=== PATIENT | female | born 1970 | race Two or more races ===

== ENCOUNTER → 2017-05-04 | Outpatient (CLI) | payer OTHER ==
[2017-05-04 09:26] LABS: Basophils # (auto) 0 uL; Eosinophils # (auto) 0.1 uL; Hematocrit 36.1 % (36.0-46.0); Hemoglobin 11.6 g/dL (12.2-16.2); Monocytes # (auto) 0.4 uL; Monocytes % (auto) 6.2 % (0.0-12.0); Neutrophils # (auto) 4.2 uL; White Blood Cell 6.4 10^3/uL (4.4-10.8)
[2017-05-04 09:28] LABS: Basophils % (auto) 0.4 % (0.0-2.0); Eosinophils % (auto) 1.5 % (0.0-7.0); Lymphocytes # (auto) 1.7 uL; Lymphocytes % (auto) 26.5 % (10.0-50.0); Mean Corpuscular Hemoglobin 23.9 pg (28.0-32.0); Mean Corpuscular Hgb Conc. 32.2 g/dL (32.0-36.0); Mean Corpuscular Volume 74.2 fL (80.0-100.0); Neutrophils % (auto) 65.4 % (37.0-80.0); Nucleated Red Blood Cells % 0.1 %; Platelet Count (auto) 361 10^3/uL (140-450); Red Blood Cells 4.86 10^6/uL (4.0-5.20); Red Cell Distribution Width 17.6 % (11.8-14.3)
[2017-05-04 09:56] LABS: Albumin 3.6 g/dL (3.4-5.0); BUN/Creatinine Ratio 18.5; Bilirubin, Total 0.7 mg/dL (0.2-1.0); Calcium 8.6 mg/dL (8.5-10.1); Potassium 3.9 mmol/L (3.5-5.1); Total Protein 7.6 g/dL (6.4-8.2)
== END | disposition home or self-care (01) ==
LOC: LAB 08:31
DX: R53.83 Other fatigue (principal); Z79.899 Other long term (current) drug therapy
CPT/HCPCS: 36415; 80053; 80061; 84443; 85025; 85652

== ENCOUNTER → 2018-02-25 | Outpatient (CLI) | payer OTHER ==
[2018-02-25 11:19] LABS: BUN/Creatinine Ratio 23.6; Bilirubin, Total 0.9 mg/dL (0.2-1.0); Calcium 8.5 mg/dL (8.5-10.1); Potassium 4.2 mmol/L (3.5-5.1)
[2018-02-25 11:35] LABS: Basophils # (auto) 0 uL; Hemoglobin 11.6 g/dL (12.2-16.2); Mean Corpuscular Volume 68.9 fL (80.0-100.0); Monocytes # (auto) 0.4 uL; Monocytes % (auto) 6.2 % (0.0-12.0); Neutrophils # (auto) 4.4 uL
[2018-02-25 11:37] LABS: Basophils % (auto) 0.5 % (0.0-2.0); Eosinophils # (auto) 0.3 uL; Eosinophils % (auto) 3.7 % (0.0-7.0); Hematocrit 36.7 % (36.0-46.0); Lymphocytes % (auto) 27.6 % (10.0-50.0); Mean Corpuscular Hemoglobin 21.8 pg (28.0-32.0); Mean Corpuscular Hgb Conc. 31.6 g/dL (32.0-36.0); Platelet Count (auto) 385 10^3/uL (140-450); Red Blood Cells 5.32 10^6/uL (4.0-5.20); Red Cell Distribution Width 20.3 % (11.8-14.3); White Blood Cell 7.1 10^3/uL (4.4-10.8)
== END | disposition home or self-care (01) ==
LOC: LAB 10:16
DX: Z00.01 Encounter for general adult medical examination with abnormal findings (principal); R53.83 Other fatigue; Z86.39 Personal history of other endocrine, nutritional and metabolic disease
CPT/HCPCS: 36415; 80053; 80061; 84436; 84443; 85025; 85652

== ENCOUNTER → 2018-05-28 | Outpatient (CLI) | payer OTHER ==
[2018-05-28 13:56] LABS: Basophils # (auto) 0 uL; Eosinophils # (auto) 0.2 uL; Hemoglobin 11.2 g/dL (12.2-16.2); Lymphocytes # (auto) 1.8 uL; White Blood Cell 9.1 10^3/uL (4.4-10.8)
[2018-05-28 13:58] LABS: Basophils % (auto) 0.5 % (0.0-2.0); Eosinophils % (auto) 1.8 % (0.0-7.0); Hematocrit 36.1 % (36.0-46.0); Lymphocytes % (auto) 19.6 % (10.0-50.0); Mean Corpuscular Volume 67.7 fL (80.0-100.0); Monocytes # (auto) 0.5 uL; Neutrophils # (auto) 6.6 uL; Neutrophils % (auto) 72.1 % (37.0-80.0); Platelet Count (auto) 411 10^3/uL (140-450); Red Blood Cells 5.33 10^6/uL (4.0-5.20); Red Cell Distribution Width 19.1 % (11.8-14.3)
[2018-05-28 14:41] LABS: % Iron Saturation 2.4 % (15-50)
== END | disposition home or self-care (01) ==
LOC: LAB 13:37
DX: D53.9 Nutritional anemia, unspecified (principal)
CPT/HCPCS: 36415; 82728; 83540; 83550; 85025

== ENCOUNTER → 2018-11-15 | Outpatient (CLI) | payer OTHER ==
[2018-11-15 08:09] LABS: Basophils # (auto) 0 uL; Eosinophils # (auto) 0.1 uL; Hemoglobin 12.6 g/dL (12.2-16.2); Lymphocytes # (auto) 1.5 uL; Mean Corpuscular Hgb Conc. 31.8 g/dL (32.0-36.0); Monocytes # (auto) 0.3 uL; Neutrophils # (auto) 5.2 uL; White Blood Cell 7.2 10^3/uL (4.4-10.8)
[2018-11-15 08:10] LABS: Basophils % (auto) 0.4 % (0.0-2.0); Eosinophils % (auto) 1.8 % (0.0-7.0); Hematocrit 39.7 % (36.0-46.0); Lymphocytes % (auto) 21.2 % (10.0-50.0); Mean Corpuscular Volume 72.3 fL (80.0-100.0); Neutrophils % (auto) 72.6 % (37.0-80.0); Platelet Count (auto) 402 10^3/uL (140-450); Red Cell Distribution Width 18.7 % (11.8-14.3)
[2018-11-15 09:13] LABS: Potassium 3.9 mmol/L (3.5-5.1)
[2018-11-15 09:21] LABS: BUN/Creatinine Ratio 24.1; Bilirubin, Total 0.5 mg/dL (0.2-1.0); Calcium 8.7 mg/dL (8.5-10.1); Total Protein 8.3 g/dL (6.4-8.2)
[2018-11-15 10:22] LABS: Free T4 (Free Thyroxine) 1.04 ng/dL (0.89-1.76)
[2018-11-15 10:23] LABS: Free T3 2.5 pg/mL (2.3-4.2)
[2018-11-15 10:24] LABS: Folate (Folic Acid) 14.21 ng/mL (5.38-24)
== END | disposition home or self-care (01) ==
LOC: LAB 07:51
DX: R53.83 Other fatigue (principal); Z86.39 Personal history of other endocrine, nutritional and metabolic disease
CPT/HCPCS: 36415; 80053; 80061; 82607; 82746; 83036; 84439; 84443; 84481; 85025

== ENCOUNTER → 2019-02-23 | Outpatient (CLI) | payer OTHER ==
[2019-02-23 07:56] LABS: Basophils # (auto) 0 uL; Eosinophils # (auto) 0.1 uL; Hemoglobin 12.3 g/dL (12.2-16.2); Mean Corpuscular Hemoglobin 23.1 pg (28.0-32.0); Neutrophils # (auto) 4.9 uL; Nucleated Red Blood Cells % 0.1 %; Red Blood Cells 5.34 10^6/uL (4.0-5.20)
[2019-02-23 07:59] LABS: Basophils % (auto) 0.3 % (0.0-2.0); Eosinophils % (auto) 1.5 % (0.0-7.0); Hematocrit 38.3 % (36.0-46.0); Lymphocytes # (auto) 1.4 uL; Lymphocytes % (auto) 20.6 % (10.0-50.0); Mean Corpuscular Hgb Conc. 32.2 g/dL (32.0-36.0); Mean Corpuscular Volume 71.6 fL (80.0-100.0); Monocytes # (auto) 0.4 uL; Monocytes % (auto) 5.5 % (0.0-12.0); Neutrophils % (auto) 72.1 % (37.0-80.0); Platelet Count (auto) 378 10^3/uL (140-450); Red Cell Distribution Width 18.3 % (11.8-14.3); White Blood Cell 6.7 10^3/uL (4.4-10.8)
[2019-02-23 08:58] LABS: Albumin 3.8 g/dL (3.4-5.0); Calcium 8.5 mg/dL (8.5-10.1)
[2019-02-23 09:03] LABS: BUN/Creatinine Ratio 25.9; Bilirubin, Total 0.4 mg/dL (0.2-1.0)
[2019-02-23 09:07] LABS: Micro Albumin 28.4 mg/L (0-30.0)
== END | disposition home or self-care (01) ==
LOC: LAB 07:32
DX: E11.9 Type 2 diabetes mellitus without complications (principal); Z86.39 Personal history of other endocrine, nutritional and metabolic disease
CPT/HCPCS: 36415; 80053; 80061; 82043; 82570; 83036; 84436; 84443; 85025

== ENCOUNTER → 2019-12-26 | Outpatient (CLI) | payer OTHER ==
[2019-12-26 11:20] LABS: Basophils # (auto) 0 10 ^3/uL (0-0.2); Eosinophils # (auto) 0.2 10 ^3/uL (0-0.8); Eosinophils % (auto) 2.6 % (0.0-7.0); Monocytes # (auto) 0.3 10 ^3/uL (0-1.3); White Blood Cell 6.3 10^3/uL (4.4-10.8)
[2019-12-26 11:22] LABS: Basophils % (auto) 0.5 % (0.0-2.0); Hematocrit 35.5 % (36.0-46.0); Lymphocytes # (auto) 1.6 10 ^3/uL (0.4-5.4); Lymphocytes % (auto) 26.1 % (10.0-50.0); Mean Corpuscular Hemoglobin 20.7 pg (28.0-32.0); Mean Corpuscular Volume 66.7 fL (80.0-100.0); Monocytes % (auto) 4.4 % (0.0-12.0); Neutrophils # (auto) 4.2 10 ^3/uL (1.6-8.6); Neutrophils % (auto) 66.4 % (37.0-80.0); Nucleated Red Blood Cells % 0.1 %; Platelet Count (auto) 423 10^3/uL (140-450); Red Blood Cells 5.33 10^6/uL (4.0-5.20); Red Cell Distribution Width 19.4 % (11.8-14.3)
[2019-12-26 12:00] LABS: Calcium 9.1 mg/dL (8.5-10.1); Potassium 3.9 mmol/L (3.5-5.1)
[2019-12-26 12:03] LABS: BUN/Creatinine Ratio 19.2; Bilirubin, Total 0.4 mg/dL (0.2-1.0); Total Protein 7.9 g/dL (6.4-8.2)
== END | disposition home or self-care (01) ==
LOC: LAB 10:47
DX: E11.9 Type 2 diabetes mellitus without complications (principal); R53.83 Other fatigue; D64.9 Anemia, unspecified
CPT/HCPCS: 36415; 80053; 84443; 85025

== ENCOUNTER → 2020-03-09 | Outpatient (CLI) | payer OTHER | END | disposition home or self-care (01) | LOC: LAB 09:43 | DX: E11.9 Type 2 diabetes mellitus without complications (principal); Z86.39 Personal history of other endocrine, nutritional and metabolic disease | CPT/HCPCS: 36415; 82306; 83036 ==

== ENCOUNTER → 2020-11-01 | Outpatient (CLI) | payer OTHER ==
[2020-11-01 08:49] LABS: Basophils # (auto) 0 10 ^3/uL (0-0.2); Eosinophils # (auto) 0.2 10 ^3/uL (0-0.8); Lymphocytes # (auto) 1.3 10 ^3/uL (0.4-5.4); Monocytes # (auto) 0.4 10 ^3/uL (0-1.3)
[2020-11-01 08:51] LABS: Basophils % (auto) 0.4 % (0.0-2.0); Eosinophils % (auto) 2.6 % (0.0-7.0); Hematocrit 37.3 % (36.0-46.0); Hemoglobin 11.7 g/dL (12.2-16.2); Mean Corpuscular Hemoglobin 21.7 pg (28.0-32.0); Mean Corpuscular Hgb Conc. 31.5 g/dL (32.0-36.0); Mean Corpuscular Volume 68.8 fL (80.0-100.0); Monocytes % (auto) 5.2 % (0.0-12.0); Neutrophils % (auto) 75.8 % (37.0-80.0); Nucleated Red Blood Cells % 0.1 %; Platelet Count (auto) 395 10^3/uL (140-450); Red Blood Cells 5.42 10^6/uL (4.0-5.20); Red Cell Distribution Width 19.9 % (11.8-14.3); White Blood Cell 7.9 10^3/uL (4.4-10.8)
[2020-11-01 09:00] LABS: Calcium 8.4 mg/dL (8.5-10.1); Potassium 3.8 mmol/L (3.5-5.1)
[2020-11-01 09:08] LABS: Albumin 3.6 g/dL (3.4-5.0); BUN/Creatinine Ratio 20.9; Bilirubin, Total 0.6 mg/dL (0.2-1.0); Total Protein 7.8 g/dL (6.4-8.2)
[2020-11-01 10:50] LABS: Protein, Urine 30.1 mg/dL (0.0-11.9)
== END | disposition home or self-care (01) ==
LOC: LAB 07:41
DX: Z00.00 Encounter for general adult medical examination without abnormal findings (principal); E11.9 Type 2 diabetes mellitus without complications; F41.0 Panic disorder [episodic paroxysmal anxiety]; H40.9 Unspecified glaucoma; D50.9 Iron deficiency anemia, unspecified; Z86.39 Personal history of other endocrine, nutritional and metabolic disease
CPT/HCPCS: 36415; 80053; 80061; 82043; 82533; 82570; 83036; 84156; 84436; 84443; 85025

== ENCOUNTER → 2021-03-23 | Outpatient (CLI) | payer OTHER ==
[2021-03-23 09:10] LABS: Basophils # (auto) 0 10 ^3/uL (0-0.2); Eosinophils # (auto) 0.1 10 ^3/uL (0-0.8); Mean Corpuscular Hemoglobin 23.6 pg (28.0-32.0); Mean Corpuscular Hgb Conc. 32.3 g/dL (32.0-36.0); Mean Corpuscular Volume 73.1 fL (80.0-100.0); Monocytes # (auto) 0.4 10 ^3/uL (0-1.3); Nucleated Red Blood Cells % 0.1 %; White Blood Cell 7.2 10^3/uL (4.4-10.8)
[2021-03-23 09:11] LABS: Basophils % (auto) 0.3 % (0.0-2.0); Eosinophils % (auto) 1.9 % (0.0-7.0); Hematocrit 42.9 % (36.0-46.0); Hemoglobin 13.9 g/dL (12.2-16.2); Lymphocytes # (auto) 1.7 10 ^3/uL (0.4-5.4); Lymphocytes % (auto) 23.8 % (10.0-50.0); Monocytes % (auto) 5.5 % (0.0-12.0); Neutrophils # (auto) 4.9 10 ^3/uL (1.6-8.6); Neutrophils % (auto) 68.5 % (37.0-80.0); Red Blood Cells 5.87 10^6/uL (4.0-5.20); Red Cell Distribution Width 21.7 % (11.8-14.3)
[2021-03-23 09:47] LABS: Albumin 3.6 g/dL (3.4-5.0); Calcium 8.9 mg/dL (8.5-10.1)
[2021-03-23 09:53] LABS: BUN/Creatinine Ratio 23.1; Bilirubin, Total 0.6 mg/dL (0.2-1.0); Total Protein 7.5 g/dL (6.4-8.2)
== END | disposition home or self-care (01) ==
LOC: LAB 08:47
PROVIDERS: ATTEND Internal Medicine
DX: Z00.00 Encounter for general adult medical examination without abnormal findings (principal); E11.9 Type 2 diabetes mellitus without complications; D56.9 Thalassemia, unspecified; Z86.39 Personal history of other endocrine, nutritional and metabolic disease
CPT/HCPCS: 36415; 80053; 80061; 82670; 83001; 83002; 83036; 84443; 85025

== ENCOUNTER → 2021-09-19 | Outpatient (CLI) | payer OTHER ==
[2021-09-19 10:30] LABS: Basophils # (auto) 0 10 ^3/uL (0-0.2); Monocytes # (auto) 0.3 10 ^3/uL (0-1.3); Neutrophils # (auto) 4.1 10 ^3/uL (1.6-8.6); Nucleated Red Blood Cells % 0.1 %
[2021-09-19 10:33] LABS: Basophils % (auto) 0.4 % (0.0-2.0); Eosinophils # (auto) 0.1 10 ^3/uL (0-0.8); Eosinophils % (auto) 2.3 % (0.0-7.0); Hemoglobin 13.6 g/dL (12.2-16.2); Lymphocytes # (auto) 1.8 10 ^3/uL (0.4-5.4); Mean Corpuscular Hemoglobin 25.7 pg (28.0-32.0); Mean Corpuscular Hgb Conc. 33.2 g/dL (32.0-36.0); Mean Corpuscular Volume 77.4 fL (80.0-100.0); Monocytes % (auto) 5.2 % (0.0-12.0); Neutrophils % (auto) 64.1 % (37.0-80.0); Red Cell Distribution Width 16.5 % (11.8-14.3); White Blood Cell 6.3 10^3/uL (4.4-10.8)
[2021-09-19 11:06] LABS: Free T4 (Free Thyroxine) 1.01 ng/dL (0.89-1.76)
[2021-09-19 11:07] LABS: Free T3 3.08 pg/mL (2.3-4.2)
[2021-09-19 11:21] LABS: Albumin 3.8 g/dL (3.4-5.0); BUN/Creatinine Ratio 24.4; Bilirubin, Total 0.7 mg/dL (0.2-1.0); Total Protein 7.6 g/dL (6.4-8.2)
== END | disposition home or self-care (01) ==
LOC: LAB 09:14
PROVIDERS: ATTEND Internal Medicine
DX: Z12.11 Encounter for screening for malignant neoplasm of colon (principal); E11.9 Type 2 diabetes mellitus without complications; E78.5 Hyperlipidemia, unspecified; D56.9 Thalassemia, unspecified; Z86.39 Personal history of other endocrine, nutritional and metabolic disease
CPT/HCPCS: 36415; 80053; 80061; 82306; 83036; 84439; 84443; 84481; 85025

== ENCOUNTER → 2022-01-31 | Outpatient (CLI) | payer OTHER ==
[2022-01-31 11:50] LABS: Basophils # (auto) 0 10 ^3/uL (0-0.2); Monocytes # (auto) 0.3 10 ^3/uL (0-1.3)
[2022-01-31 11:52] LABS: Basophils % (auto) 0.2 % (0.0-2.0); Eosinophils # (auto) 0.2 10 ^3/uL (0-0.8); Eosinophils % (auto) 2.7 % (0.0-7.0); Hematocrit 46.2 % (36.0-46.0); Hemoglobin 14.7 g/dL (12.2-16.2); Lymphocytes # (auto) 1.4 10 ^3/uL (0.4-5.4); Lymphocytes % (auto) 20.3 % (10.0-50.0); Mean Corpuscular Hemoglobin 26.4 pg (28.0-32.0); Mean Corpuscular Hgb Conc. 31.7 g/dL (32.0-36.0); Mean Corpuscular Volume 83.2 fL (80.0-100.0); Monocytes % (auto) 4.2 % (0.0-12.0); Neutrophils # (auto) 5.2 10 ^3/uL (1.6-8.6); Neutrophils % (auto) 72.6 % (37.0-80.0); Nucleated Red Blood Cells % 0.4 %; Red Blood Cells 5.56 10^6/uL (4.0-5.20); Red Cell Distribution Width 14.5 % (11.8-14.3); White Blood Cell 7.1 10^3/uL (4.4-10.8)
[2022-01-31 12:04] LABS: Potassium 3.9 mmol/L (3.5-5.1)
[2022-01-31 12:23] LABS: Albumin 4.1 g/dL (3.4-5.0); Bilirubin, Total 0.8 mg/dL (0.2-1.0); Calcium 9.2 mg/dL (8.5-10.1)
[2022-01-31 13:02] LABS: Follicle Stimulating Hormone 108.16 IU/L (SEE BELOW); Leuteinizing Hormone 67.7 IU/L
== END | disposition home or self-care (01) ==
LOC: LAB 10:40
PROVIDERS: ATTEND Internal Medicine
DX: E11.9 Type 2 diabetes mellitus without complications (principal); D56.9 Thalassemia, unspecified; Z86.39 Personal history of other endocrine, nutritional and metabolic disease
CPT/HCPCS: 36415; 80053; 80061; 82670; 83001; 83002; 83036; 84403; 85025

== ENCOUNTER → 2022-07-07 | Outpatient (CLI) | payer OTHER | END | disposition home or self-care (01) | LOC: LAB 09:22 | PROVIDERS: ATTEND Registered Nurse Obstetric, Inpatient | DX: E11.9 Type 2 diabetes mellitus without complications (principal); Z86.39 Personal history of other endocrine, nutritional and metabolic disease | CPT/HCPCS: 36415; 82465; 83036; 84436; 84443 ==

== ENCOUNTER 2022-08-17 10:09 | Inpatient (IN) | payer OTHER ==
[~2022-08-17] VITALS: Ht 157.5 cm; Wt 60.0 kg
[2022-08-17 11:43] LABS: Basophils # (auto) 0 10 ^3/uL (0-0.2); Basophils % (auto) 0.5 % (0.0-2.0); Eosinophils # (auto) 0.2 10 ^3/uL (0-0.8); Hematocrit 44.1 % (36.0-46.0); Hemoglobin 15.3 g/dL (12.2-16.2); Lymphocytes # (auto) 2.1 10 ^3/uL (0.4-5.4); Lymphocytes % (auto) 30.8 % (10.0-50.0); Mean Corpuscular Hgb Conc. 34.7 g/dL (32.0-36.0); Mean Corpuscular Volume 83.7 fL (80.0-100.0); Monocytes # (auto) 0.4 10 ^3/uL (0-1.3); Monocytes % (auto) 5.3 % (0.0-12.0); Neutrophils % (auto) 60.4 % (37.0-80.0); Nucleated Red Blood Cells % 0.1 %; Red Blood Cells 5.28 10^6/uL (4.0-5.20); Red Cell Distribution Width 13.9 % (11.8-14.3); White Blood Cell 6.7 10^3/uL (4.4-10.8)
[2022-08-17] MEDS ORDERED: LISI-275 PO (12:03)
[2022-08-17 12:14] LABS: Albumin 4.1 g/dL (3.4-5.0); Calcium 9.1 mg/dL (8.5-10.1); Potassium 3.9 mmol/L (3.5-5.1)
[2022-08-17 12:17] LABS: BUN/Creatinine Ratio 25.7; Bilirubin, Total 0.6 mg/dL (0.2-1.0); Total Protein 7.6 g/dL (6.4-8.2)
[2022-08-17 13:56] LABS: Cholesterol 215 mg/dL (< 200)
[2022-08-17 13:59] LABS: HDL Cholesterol 52 mg/dL (40-59); LDL Cholesterol 136 mg/dL (< 100); Triglycerides 232 mg/dL (< 150)
[2022-08-17] MEDS ORDERED: HYDROcodone-ACET 5/325MG TAB PO PRN (14:00)
[2022-08-17] MEDS ORDERED: MORPHINE SULFATE INJ 2 MG/ml SYRG IV PRN ×2 (14:00)
[2022-08-17] MEDS ORDERED: NITROGLYCERIN 0.4 MG SL TAB SL PRN (14:00)
[2022-08-17] MEDS ORDERED: ACETAMINOPHEN 325 MG TAB PO PRN (14:00)
[2022-08-17] MEDS ORDERED: LISINOPRIL 20 MG TAB PO ONE (14:15)
[2022-08-17] MEDS ORDERED: hydrALAZINE HCL 20 MG/ML VL IV PRN (14:15)
[2022-08-17] MEDS ORDERED: ENOXAPARIN SOD 60 MG/0.6 ML SYRINGE SC ONE (14:15)
[2022-08-17] MEDS ORDERED: DEXTROSE (50%) 50ML SYRG IV PRN (14:15)
[2022-08-17] MEDS: ASPirin 81 mg TAB PO SCH (18:09)
[2022-08-17] MEDS: ACCU-CHEK COMFORT CURVE STRIP VI SCH ×2 (18:14→22:06)
[2022-08-17] MEDS: InsuLIN REG 1unit/0.01ml Soln (100units/ml) SC SCH ×2 (18:27→22:12)
[2022-08-17] MEDS: SODIUM CHLORIDE 0.9% 1,000 ML IV SCH ×2 (19:32→22:12)
[2022-08-17 21:12] LABS: Urine Bacteria NONE SEEN /hpf (None Seen); Urine Blood Negative /uL (Negative); Urine Mucus FEW (None Seen); Urine Specific Gravity 1.027 (1.001-1.035); Urine WBC 26 /hpf (0 - 5)
[2022-08-17 21:33] LABS: Amphetamine Screen, Urine NEGATIVE (NEGATIVE); Barbiturate Scree,Urine NEGATIVE (NEGATIVE); Benzodiazephine Screen, Urine NEGATIVE (NEGATIVE); Cannabinoid Screen, Urine NEGATIVE (NEGATIVE); Cocaine Screen, Urine NEGATIVE (NEGATIVE); Opiate Scree,Urine NEGATIVE (NEGATIVE); Phencyclidine Screen, Urine NEGATIVE (NEGATIVE)
[2022-08-17] MEDS ORDERED: ATORVASTATIN 20 MG TAB PO SCH (22:00)
[2022-08-18 05:28] LABS: Basophils # (auto) 0 10 ^3/uL (0-0.2); Basophils % (auto) 0.4 % (0.0-2.0); Eosinophils # (auto) 0.2 10 ^3/uL (0-0.8); Eosinophils % (auto) 3.1 % (0.0-7.0); Hematocrit 40.8 % (36.0-46.0); Hemoglobin 13.9 g/dL (12.2-16.2); Lymphocytes # (auto) 2.1 10 ^3/uL (0.4-5.4); Lymphocytes % (auto) 34.2 % (10.0-50.0); Mean Corpuscular Hemoglobin 29.1 pg (28.0-32.0); Mean Corpuscular Volume 85.5 fL (80.0-100.0); Monocytes # (auto) 0.3 10 ^3/uL (0-1.3); Monocytes % (auto) 5.2 % (0.0-12.0); Neutrophils # (auto) 3.4 10 ^3/uL (1.6-8.6); Neutrophils % (auto) 57.1 % (37.0-80.0); Red Blood Cells 4.76 10^6/uL (4.0-5.20); Red Cell Distribution Width 14.1 % (11.8-14.3)
[2022-08-18 05:45] LABS: Albumin 3.5 g/dL (3.4-5.0); Calcium 8.2 mg/dL (8.5-10.1); Potassium 3.8 mmol/L (3.5-5.1)
[2022-08-18 05:49] LABS: Bilirubin, Total 0.8 mg/dL (0.2-1.0); Total Protein 6.9 g/dL (6.4-8.2)
[2022-08-18] MEDS: ACCU-CHEK COMFORT CURVE STRIP VI SCH ×2 (06:57→11:51)
[2022-08-18] MEDS: InsuLIN REG 1unit/0.01ml Soln (100units/ml) SC SCH ×3 (07:04→16:33)
[2022-08-18] MEDS ORDERED: cefTRIAXone 1GM/50ML D5W 50 ML IV SCH (09:00)
[2022-08-18] MEDS: SODIUM CHLORIDE 0.9% 1,000 ML IV SCH ×2 (09:15→14:15)
[2022-08-18] MEDS ORDERED: ENOXAPARIN SOD 40 MG/0.4 ML SYRINGE SC SCH (10:00)
[2022-08-18] MEDS ORDERED: LISINOPRIL 20 MG TAB PO SCH (10:00)
[2022-08-18] MEDS: ASPirin 81 mg TAB PO SCH (10:34)
[2022-08-18 12:20] VITALS: BP 145/76
[2022-08-18] MEDS ORDERED: METF-869 PO (12:34)
[2022-08-18 12:40] VITALS: BP 145/76
[2022-08-18] MEDS ORDERED: LISI20TA28 PO (14:59)
[2022-08-18] MEDS ORDERED: ATOR20TA50 PO (14:59)
[2022-08-18 15:43] VITALS: BP 124/87
== END 2022-08-18 17:20 | disposition home or self-care (01) | DRG 281 ==
LOC: ER 10:09 → TELE 14:03 → TELE-E-ADS 08-18 11:43
PROVIDERS: ADMIT Registered Nurse; ATTEND Internal Medicine
DX: I16.1 Hypertensive emergency (principal); I21.A1 Myocardial infarction type 2; N39.0 Urinary tract infection, site not specified; G43.909 Migraine, unspecified, not intractable, without status migrainosus; E11.9 Type 2 diabetes mellitus without complications; I10 Essential (primary) hypertension; Z20.822 Contact with and (suspected) exposure to COVID-19; E78.5 Hyperlipidemia, unspecified
CPT/HCPCS: 36415; 70450; 71046; 80053; 80061; 80307; 81001; 82962; 83036; 83735; 84443; 84484; 85025; 87426; 93005; 93306; 93886; G0378; J0696; J1815

== ENCOUNTER → 2023-04-03 | Outpatient (CLI) | payer OTHER ==
[~2023-04-03] MED LIST: ATOR20TA50 PO; LISI20TA56 PO; METF-869 PO
== END | disposition home or self-care (01) ==
LOC: Rad HDHVI 08:03
PROVIDERS: ATTEND Internal Medicine Cardiovascular Disease
DX: I51.7 Cardiomegaly (principal); R00.2 Palpitations; R07.89 Other chest pain
CPT/HCPCS: 93306

== ENCOUNTER → 2023-04-06 | Outpatient (CLI) | payer OTHER ==
[~2023-04-06] VITALS: Ht 157.5 cm; Wt 56.7 kg
== END | disposition home or self-care (01) ==
LOC: Rad HDHVI 09:33
PROVIDERS: ATTEND Internal Medicine Cardiovascular Disease
DX: I10 Essential (primary) hypertension (principal); E11.9 Type 2 diabetes mellitus without complications; E78.00 Pure hypercholesterolemia, unspecified; Z82.49 Family history of ischemic heart disease and other diseases of the circulatory system; Z79.84 Long term (current) use of oral hypoglycemic drugs; Z79.899 Other long term (current) drug therapy
CPT/HCPCS: 78452; 93017; 96374; A9500

== ENCOUNTER → 2023-04-22 | Outpatient (CLI) | payer OTHER ==
[2023-04-23 13:06] LABS: Anti-Nuclear Antibody Direct Negative (Negative)
[2023-04-23 15:07] LABS: Alpha-1-Globulin 0.3 g/dL (0.0-0.4); Alpha-2-Globulin 0.9 g/dL (0.4-1.0); Gamma Globulin 1.2 g/dL (0.4-1.8); Globulin Total 3.7 g/dL (2.2-3.9); Protein Total Serum 7.7 g/dL (6.0-8.5)
== END | disposition home or self-care (01) ==
LOC: LAB 07:16
PROVIDERS: ATTEND Internal Medicine Cardiovascular Disease
DX: E05.00 Thyrotoxicosis with diffuse goiter without thyrotoxic crisis or storm (principal); H93.3X1 Disorders of right acoustic nerve
CPT/HCPCS: 81241; 84155; 84165; 85305; 85306; 85613; 85670; 85705; 85732; 86038

== ENCOUNTER 2023-11-23 05:24 | Inpatient (IN) | payer OTHER ==
[~2023-11-23] VITALS: Ht 157.5 cm; Wt 57.6 kg
[2023-11-23 08:02] LABS: Basophils # (auto) 0 10 ^3/uL (0-0.2); Basophils % (auto) 0.3 % (0.0-2.0); Eosinophils # (auto) 0.1 10 ^3/uL (0-0.8); Eosinophils % (auto) 0.6 % (0.0-7.0); Hematocrit 41.2 % (36.0-46.0); Hemoglobin 13.8 g/dL (12.2-16.2); Lymphocytes # (auto) 1.1 10 ^3/uL (0.4-5.4); Lymphocytes % (auto) 12.3 % (10.0-50.0); Mean Corpuscular Hemoglobin 28.8 pg (28.0-32.0); Mean Corpuscular Hgb Conc. 33.4 g/dL (32.0-36.0); Mean Corpuscular Volume 86.2 fL (80.0-100.0); Monocytes # (auto) 0.4 10 ^3/uL (0-1.3); Monocytes % (auto) 4.1 % (0.0-12.0); Neutrophils # (auto) 7.2 10 ^3/uL (1.6-8.6); Neutrophils % (auto) 82.7 % (37.0-80.0); Nucleated Red Blood Cells % 0.1 %; Red Blood Cells 4.78 10^6/uL (4.0-5.20); Red Cell Distribution Width 13.7 % (11.8-14.3); White Blood Cell 8.7 10^3/uL (4.4-10.8)
[2023-11-23] MEDS: cloNIDine HCL 0.1 MG TAB PO ONE (08:07)
[2023-11-23 08:21] LABS: Alanine Aminotransferase 146 U/L (7-40); Albumin 4.7 g/dL (3.2-4.8); Alkaline Phosphatase 127 U/L (46-116); Anion Gap 6 (5-15); Aspartate Aminotransferase 71 U/L (13-40); BUN/Creatinine Ratio 21.3 (10.0-20.0); Bilirubin, Total 0.8 mg/dL (0.2-1.0); Blood Urea Nitrogen 17 mg/dL (9-23); Calcium 9.8 mg/dL (8.5-10.1); Carbon Dioxide 27 mmol/L (20-30); Chloride 108 mmol/L (98-107); Glucose 118 mg/dL (74-106); Potassium 3.4 mmol/L (3.5-5.1); Sodium 141 mmol/L (136-145); Total Protein 7.2 g/dL (5.7-8.2)
[2023-11-23 09:05] LABS: Urine Bacteria None Seen /hpf (None Seen)
[2023-11-23 09:11] LABS: Urine Blood Negative /uL (Negative); Urine Clarity Clear (Clear); Urine Color Light-Yellow (Yellow); Urine Mucus FEW (None Seen); Urine Protein, UAD Negative (Negative); Urine Urobilinogen Normal (Negative); Urine WBC <1 /hpf (0 - 5)
[2023-11-23] MEDS ORDERED: METO-289 PO (11:55)
[2023-11-23] MEDS ORDERED: HYDR25TA5 PO (11:55)
[2023-11-23] MEDS ORDERED: ONDANSETRON HCL 4 MG/2 ML VIAL IV PRN (12:00)
[2023-11-23] MEDS ORDERED: MORPHINE SULFATE INJ 2 MG/ml SYRG IV PRN (12:00)
[2023-11-23] MEDS ORDERED: hydrALAZINE HCL 20 MG/ML VL IV PRN (12:00)
[2023-11-23] MEDS ORDERED: DEXTROSE (50%) 50ML SYRG IV PRN (12:00)
[2023-11-23] MEDS: SOD CHL 0.45% 1,000 ML IV SCH (12:13)
[2023-11-23 12:21] LABS: LDL Cholesterol 89 mg/dL (< 100); Triglycerides 53 mg/dL (< 150)
[2023-11-23 12:23] LABS: Cholesterol 158 mg/dL (< 200); HDL Cholesterol 55 mg/dL (40-59)
[2023-11-23 12:36] LABS: Hepatitis B Surface Antigen Negative (Negative)
[2023-11-23 12:56] LABS: Hepatitis A Ab IgM Negative
[2023-11-23 12:57] LABS: Hepatitis B Core IgM Negative; Hepatitis C Antibody Negative (Negative)
[2023-11-23] MEDS: ACCU-CHEK COMFORT CURVE STRIP VI SCH (17:42)
[2023-11-23] MEDS: InsuLIN REG 1unit/0.01ml Soln (100units/ml) SC SCH (17:46)
[2023-11-23 18:35] VITALS: BP 99/67; PULSE 56; RESP 17; TEMP 97.6; O2SAT 99
[2023-11-23 20:00] VITALS: PULSE 56
[2023-11-23 21:00] VITALS: BP 107/69; PULSE 65; RESP 18; TEMP 97.8; O2SAT 99
[2023-11-24 01:00] VITALS: BP 99/60; PULSE 64; RESP 18; TEMP 97.6; O2SAT 100
[2023-11-24 05:00] VITALS: BP 95/73; PULSE 71; RESP 18; TEMP 97.9; O2SAT 99
[2023-11-24 06:37] LABS: Basophils # (auto) 0 10 ^3/uL (0-0.2); Basophils % (auto) 0.2 % (0.0-2.0); Eosinophils # (auto) 0.1 10 ^3/uL (0-0.8); Hematocrit 36.3 % (36.0-46.0); Lymphocytes # (auto) 1.7 10 ^3/uL (0.4-5.4); Lymphocytes % (auto) 24.5 % (10.0-50.0); Mean Corpuscular Hemoglobin 28.7 pg (28.0-32.0); Mean Corpuscular Hgb Conc. 33.1 g/dL (32.0-36.0); Mean Corpuscular Volume 86.6 fL (80.0-100.0); Monocytes # (auto) 0.4 10 ^3/uL (0-1.3); Monocytes % (auto) 5.9 % (0.0-12.0); Neutrophils # (auto) 4.6 10 ^3/uL (1.6-8.6); Neutrophils % (auto) 67.4 % (37.0-80.0); Red Blood Cells 4.19 10^6/uL (4.0-5.20); Red Cell Distribution Width 13.8 % (11.8-14.3); White Blood Cell 6.8 10^3/uL (4.4-10.8)
[2023-11-24 06:57] LABS: Alanine Aminotransferase 102 U/L (7-40); Alkaline Phosphatase 89 U/L (46-116); Anion Gap 6 (5-15); Aspartate Aminotransferase 28 U/L (13-40); BUN/Creatinine Ratio 21.3 (10.0-20.0); Blood Urea Nitrogen 17 mg/dL (9-23); Calcium 9.4 mg/dL (8.7-10.4); Carbon Dioxide 26 mmol/L (20-30); Chloride 108 mmol/L (98-107); Glucose 103 mg/dL (74-106); Potassium 3.7 mmol/L (3.5-5.1); Sodium 140 mmol/L (136-145)
[2023-11-24 06:58] LABS: Total Protein 6.1 g/dL (5.7-8.2)
[2023-11-24 08:00] VITALS: PULSE 58
[2023-11-24 09:00] VITALS: BP 100/66; PULSE 66; RESP 19; TEMP 97.9; O2SAT 99
[2023-11-24] MEDS: LISINOPRIL 20 MG TAB PO SCH (10:04)
[2023-11-24] MEDS: hydroCHLOROthiazide 25 MG TAB PO SCH (10:04)
[2023-11-24] MEDS: METOPROLOL SUCCINATE XL 50 MG TAB PO SCH (10:05)
[2023-11-24] MEDS: ENOXAPARIN SOD 40 MG/0.4 ML SYRINGE SC SCH (10:08)
[2023-11-24] MEDS ORDERED: LISI20TA56 PO (11:31)
[2023-11-24] MEDS ORDERED: HYDR25TA5 PO (11:31)
[2023-11-24] MEDS ORDERED: METO-6 PO (11:31)
[2023-11-24 12:09] VITALS: BP 100/66; PULSE 66
[2023-11-24 13:23] VITALS: BP 118/74; PULSE 64; RESP 17; TEMP 97.9; O2SAT 98
== END 2023-11-24 12:30 | disposition home or self-care (01) | DRG 305 ==
LOC: ER 05:24 → TELE 11:59 → TELE-EAST 18:39
PROVIDERS: ADMIT Registered Nurse; ATTEND Internal Medicine
DX: I16.0 Hypertensive urgency (principal); E11.9 Type 2 diabetes mellitus without complications; E78.5 Hyperlipidemia, unspecified; E87.6 Hypokalemia; Z91.199 Patient's noncompliance with other medical treatment and regimen due to unspecified reason; Z79.4 Long term (current) use of insulin
CPT/HCPCS: 36415; 70450; 76700; 80053; 80061; 80074; 81001; 82962; 83036; 83735; 84443; 85025; 93306; G0378

== ENCOUNTER → 2024-01-26 | Outpatient (CLI) | payer OTHER ==
[~2024-01-26] MED LIST changes: +HYDR25TA5 PO; +METO-6 PO
[2024-01-26 11:07] LABS: Basophils # (auto) 0 10 ^3/uL (0-0.2); Basophils % (auto) 0.3 % (0.0-2.0); Eosinophils # (auto) 0.3 10 ^3/uL (0-0.8); Eosinophils % (auto) 3.8 % (0.0-7.0); Hematocrit 39.5 % (36.0-46.0); Hemoglobin 13.6 g/dL (12.2-16.2); Lymphocytes # (auto) 2.5 10 ^3/uL (0.4-5.4); Lymphocytes % (auto) 32.8 % (10.0-50.0); Mean Corpuscular Hemoglobin 29.5 pg (28.0-32.0); Mean Corpuscular Hgb Conc. 34.3 g/dL (32.0-36.0); Mean Corpuscular Volume 86.1 fL (80.0-100.0); Monocytes # (auto) 0.4 10 ^3/uL (0-1.3); Monocytes % (auto) 5.7 % (0.0-12.0); Neutrophils # (auto) 4.4 10 ^3/uL (1.6-8.6); Neutrophils % (auto) 57.4 % (37.0-80.0); Red Blood Cells 4.59 10^6/uL (4.0-5.20); Red Cell Distribution Width 13.2 % (11.8-14.3); White Blood Cell 7.6 10^3/uL (4.4-10.8)
[2024-01-26 11:33] LABS: Urine Blood Negative /uL (Negative); Urine Clarity Clear (Clear); Urine Color Light-Yellow (Yellow); Urine Protein, UAD Negative (Negative); Urine Specific Gravity 1.015 (1.001-1.035); Urine Urobilinogen Normal (Negative); Urine pH 5.5 (5.0-9.0)
[2024-01-26 11:39] LABS: Alanine Aminotransferase 340 U/L (7-40); Albumin 4.7 g/dL (3.2-4.8); Alkaline Phosphatase 184 U/L (46-116); Anion Gap 7 (5-15); Aspartate Aminotransferase 85 U/L (13-40); BUN/Creatinine Ratio 15.8 (10.0-20.0); Blood Urea Nitrogen 15 mg/dL (9-23); Calcium 10.1 mg/dL (8.7-10.4); Carbon Dioxide 28 mmol/L (20-30); Chloride 106 mmol/L (98-107); Cholesterol 188 mg/dL (< 200); Glucose 91 mg/dL (74-106); LDL Cholesterol 117 mg/dL (< 100); Potassium 4.1 mmol/L (3.5-5.1); Sodium 141 mmol/L (136-145); Triglycerides 100 mg/dL (< 150)
[2024-01-26 11:40] LABS: Bilirubin, Direct 0.3 mg/dL (<0.3); Bilirubin, Total 0.8 mg/dL (0.2-1.0); HDL Cholesterol 52 mg/dL (40-59); Total Protein 7.4 g/dL (5.7-8.2)
== END | disposition home or self-care (01) ==
LOC: LAB 10:36
PROVIDERS: ATTEND Internal Medicine
DX: I10 Essential (primary) hypertension (principal); E11.9 Type 2 diabetes mellitus without complications; D64.9 Anemia, unspecified; E55.9 Vitamin D deficiency, unspecified; R30.0 Dysuria; D51.3 Other dietary vitamin B12 deficiency anemia; R00.2 Palpitations
CPT/HCPCS: 36415; 80048; 80061; 80076; 81003; 83036; 84443; 85025

== ENCOUNTER → 2024-05-31 | Outpatient (CLI) | payer OTHER ==
[~2024-05-31] VITALS: Ht 157.5 cm; Wt 53.5 kg
== END | disposition home or self-care (01) ==
LOC: Rad HDHVI 08:40
PROVIDERS: ATTEND Internal Medicine Cardiovascular Disease
DX: I49.3 Ventricular premature depolarization (principal); I49.1 Atrial premature depolarization; I11.0 Hypertensive heart disease with heart failure; I50.23 Acute on chronic systolic (congestive) heart failure; E11.9 Type 2 diabetes mellitus without complications; Z82.49 Family history of ischemic heart disease and other diseases of the circulatory system; Z86.73 Personal history of transient ischemic attack (TIA), and cerebral infarction without residual deficits; R07.89 Other chest pain; R42 Dizziness and giddiness; R06.02 Shortness of breath
CPT/HCPCS: 78452; 93017; 96374; A9500

== ENCOUNTER → 2025-04-11 | Outpatient (CLI) | payer OTHER ==
--- NOTE | 2025-04-12 13:19 | DVHSR ---
APPROVED REPORT EXAM: Two-dimensional and M-mode echocardiogram with Doppler and color Doppler. DIMENSIONS LVDd4.2 (3.8-5.7cm)LA (2D)3.2 (1.9-4.0cm)Aortic Root3.1 (2.0-3.7cm) LVDs2.8 (2.5-4.0cm)LA (MM) (1.9-4.0cm)Aortic Cusp Exc1.6 (1.5-2.0cm) EF (%) 60.0 (55-70%)Rt. Atrium3.2 (1.9-4.0cm)Asc. Aorta cm IVSd1.0 (0.7-1.1cm)RV (D)2.8 (1.8-2.4cm) PWd0.9 (0.7-1.1cm) Mitral Valve MitralMitral Stenosis E wave0.79m/sMV Mean GR.mmHg A wave0.62m/sMV Peak GR.mmHg E/A ratio1.32D MVAcm2 DECEL [id number] 1/2 [place] Aortic Valve Aortic ValveAortic Stenosis V10.81m/David Mean GR.3mmHg V21.10m/David Peak GR.5mmHg LVOT Diameter1.9 (1.8-2.4cm)Doppler AVA2.09cm2 Pulmonic Valve V20.68m/s LEFT VENTRICLE The left ventricle is normal size. The left ventricle is normal in structure and function. The Ejection Fraction is within normal limits. RIGHT VENTRICLE The right ventricle is normal size. ATRIA The left atrial size is normal. The right atrium size is normal. The interatrial septum is intact with no evidence for an atrial septal defect. MITRAL VALVE The mitral valve is normal in structure and function. Mitral regurgitation is trace. PULMONIC VALVE The pulmonic valve is not well visualized. TRICUSPID VALVE The tricuspid valve is grossly normal. There is trace tricuspid regurgitation. AORTIC VALVE The aortic valve opens well. No aortic regurgitation is present. GREAT VESSELS The aortic root is normal size. PERICARDIAL EFFUSION There is no pericardial effusion. Conclusion EF >55%
== END | disposition home or self-care (01) ==
LOC: Rad HDHVI 13:01
PROVIDERS: ATTEND Internal Medicine Cardiovascular Disease
CPT/HCPCS: 93306